=== PATIENT | female | born 1995 | race Caucasian/White ===

== ENCOUNTER 2021-11-11 18:58 | Emergency (ER) | payer OTHER ==
[~2021-11-11] VITALS: Ht 160 cm; Wt 71.0 kg
[2021-11-11 18:59] VITALS: BP 134/70
[2021-11-12] MEDS ORDERED: KETOROLAC 60MG 2ML VIAL IM ONE (00:15)
[2021-11-12] MEDS ORDERED: NORCO, ANEXSIA 5/325MG TABLET (HYDROcodone/ACETAMINOPHEN) PO ONE (00:15)
[2021-11-12] MEDS ORDERED: NORCO 5/325MG TABLET (HOME DOSE PACK) PO ONE (00:40)
[2021-11-12] MEDS ORDERED: LIDOCAINE 4% CREAM 5GM (LMX4) TOP ONE (00:40)
== END 2021-11-12 01:12 | disposition home or self-care (01) ==
LOC: M ED 18:58
DX: R20.9 Unspecified disturbances of skin sensation (principal); S69.91XA Unspecified injury of right wrist, hand and finger(s), initial encounter; X50.0XXA Overexertion from strenuous movement or load, initial encounter; Y92.89 Other specified places as the place of occurrence of the external cause; Z88.0 Allergy status to penicillin
CPT/HCPCS: 73110; 96372; 99282; J1885